=== PATIENT | female | born 2000 | race American Indian/Alaskan Native ===

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

== ENCOUNTER 2019-03-06 09:43 | Emergency (ER) | payer MEDICAID, OTHER ==
[2019-03-06 09:56] VITALS: BP 126/64
[2019-03-06] MEDS ORDERED: IPRATROPIUM/ALBUTEROL SULFATE 3 ML AMPUL.NEB IH ONE (10:20)
[2019-03-06] MEDS ORDERED: DEXAMETHASONE 4 MG TAB PO ONE (10:20)
--- NOTE | 2019-03-06 10:23 | Emergency Department Report ---
HPI - General Chief Complaint: Sore Throat Time Seen by Provider: 03/06/19 10:19 - HPI HPI: 18-year-old -[place] female presents to the emergency department with a complaint of a 3 day history of itchy eyes, scratchy throat and some wheezing. Patient has a history of asthma and says that she thinks the wheezing may be secondary to her asthma and the rest of the symptoms could be allergies. She has not taken anything for her symptoms prior to arrival. She does not have an albuterol inhaler at home. No recent travel or sick contacts at home. Denies any fever. She smokes Black and mild cigarillos. She does not have a primary care physician. ED Past Medical Hx - Past Medical History Previous Medical History?: Yes Hx Hypertension: No Hx Diabetes: No Hx Deep Vein Thrombosis: No Hx Renal Disease: No Hx Sickle Cell Disease: No Hx Seizures: No Hx Asthma: Yes Hx COPD: No Hx HIV: No - Surgical History Past Surgical History?: Yes Additional Surgical History: C section - Social History Smoking Status: Unknown if ever smoked Substance Use Type: None - Medications Home Medications: Home Medications Medication Instructions Recorded Confirmed Last Taken Type Valacyclovir HCl [Valtrex] 1,000 mg PO DAILY 07/09/18 07/09/18 07/07/18 History Docusate Sodium [Colace] 100 mg PO BID PRN #30 capsule 07/10/18 Unknown Rx Ferrous Sulfate [Feosol 325 MG tab] 325 mg PO BID #90 tablet 07/10/18 Unknown Rx Ibuprofen [Motrin 800 MG tab] 800 mg PO TID PRN #30 tablet 07/10/18 Unknown Rx oxyCODONE /ACETAMINOPHEN [Percocet 1 - 2 tab PO Q4HR PRN #30 tablet 07/10/18 Unknown Rx 5/325 mg] Cyclobenzaprine [Flexeril 10 MG 10 mg PO QHS #10 tablet 09/06/18 Unknown Rx TAB] Ibuprofen [Motrin 800 MG tab] 800 mg PO TID #30 tablet 09/06/18 Unknown Rx ALBUTEROL Inhaler (OR & NICU) 2 puff IH QID PRN #1 inh 03/06/19 Unknown Rx [ProAir HFA Inhaler] Cetirizine HCl [ZyrTEC 10mg cap] 10 mg PO QDAY #15 capsule 03/06/19 Unknown Rx ED Review of Systems ROS: Stated complaint: WHEEZING/COUGH/ITCHY EYES Other details as noted in HPI Comment: All other systems reviewed and negative Constitutional: denies: chills, fever Eyes: other (itchy eyes). denies: eye pain ENT: throat pain (scratchy throat). denies: ear pain Respiratory: wheezing. denies: cough Cardiovascular: denies: chest pain Gastrointestinal: denies: abdominal pain Musculoskeletal: denies: back pain, joint swelling Neurological: denies: headache, weakness Physical Exam - Physical Exam Vital Signs: Vital Signs 03/06/19 09:54 Temperature 98.9 F Pulse Rate 85 Respiratory 16 Rate Blood Pressure 126/64 O2 Sat by Pulse 97 Oximetry Physical Exam: GENERAL: The patient is well-developed well-nourished. HENT: Normocephalic. Atraumatic. Patient has moist mucous membranes. EYES: Extraocular motions are intact. Pupils equal reactive to light bilaterally. NECK: Supple. Trachea is midline. CHEST/LUNGS: Mild expiratory wheezing. A dry cough heard during examination. No tachypnea or accessory muscle use. There is no respiratory distress noted. HEART/CARDIOVASCULAR: Regular. There is no tachycardia. There is no murmur. ABDOMEN: Abdomen is soft, nontender. Patient has normal bowel sounds. SKIN: Skin is warm and dry. NEURO: The patient is awake, alert, and oriented. The patient is cooperative. The patient has no focal neurologic deficits. Normal speech. MUSCULOSKELETAL: There is no tenderness or deformity. There is no evidence of acute injury. ED Course Vital Signs 03/06/19 09:54 Temperature 98.9 F Pulse Rate 85 Respiratory 16 Rate Blood Pressure 126/64 O2 Sat by Pulse 97 Oximetry ED Medical Decision Making - Medical Decision Making This patient presents to the emergency department with some wheezing, itchy eyes and scratchy throat. Oropharynx does not appear consistent with strep pharyngitis or any significant infection. No drooling or trismus. Her eyes are unremarkable. She has some mild expiratory wheezing without any signs of respiratory distress. She was given a dose of Decadron and a breathing treatment. Her vital signs have been within normal limits. Patient be discharged home with some Zyrtec and an albuterol inhaler and referrals for primary care. She will return to the ER with any worsening of her symptoms or any acute distress. - Differential Diagnosis allergies, asthma, bronchitis Critical Care Time: No Critical care attestation.: If time is entered above; I have spent that time in minutes in the direct care of this critically ill patient, excluding procedure time. ED Disposition Clinical Impression: Environmental and seasonal allergies Asthma Qualifiers: Asthma severity: unspecified severity Asthma persistence: unspecified Asthma complication type: unspecified Qualified Code(s): J45.909 - Unspecified asthma, uncomplicated Disposition: DC- TO HOME OR SELFCARE Is pt being admited?: No Condition: Stable Instructions: Asthma (ED) Additional Instructions: Please follow-up with a primary care physician in the next few days. Return to the emergency Department with any worsening of your symptoms or any acute distr ess. Prescriptions: ALBUTEROL Inhaler (OR & NICU) [ProAir HFA Inhaler] 2 puff IH QID PRN #1 inh PRN Reason: Shortness Of Breath Cetirizine HCl [ZyrTEC 10mg cap] 10 mg PO QDAY #15 capsule Referrals: BOBO MAHER MD [Staff Physician] - 2-3 Days [facility] [Outside] - 2-3 Days Time of Disposition: 11:05
== END 2019-03-06 12:04 | disposition home or self-care (01) ==
LOC: ED 09:43
DX: T78.49XA Other allergy, initial encounter (principal); J45.909 Unspecified asthma, uncomplicated; H57.89 Other specified disorders of eye and adnexa; Z79.899 Other long term (current) drug therapy; Y92.89 Other specified places as the place of occurrence of the external cause
CPT/HCPCS: 94640; 99283; J8540; 94644

== ENCOUNTER 2020-11-23 13:54 | Emergency (ER) | payer OTHER | END 2020-11-23 15:53 | LOC: ED 13:54 | DX: N89.8 Other specified noninflammatory disorders of vagina (principal); Z53.21 Procedure and treatment not carried out due to patient leaving prior to being seen by health care provider ==